=== PATIENT | female | born 1955 | race Two or more races ===

== ENCOUNTER 2018-03-21 10:40 | Emergency (ER) | payer MEDICAID, OTHER ==
[~2018-03-21] VITALS: Ht 149.9 cm; Wt 50.3 kg
[2018-03-21 10:54] VITALS: BP 219/96
[2018-03-21] MEDS ORDERED: cloNIDine HCL 0.1 MG TAB PO ONE (11:00)
== END 2018-03-21 11:37 | disposition home or self-care (01) ==
LOC: ER 10:46
DX: I16.0 Hypertensive urgency (principal); J06.9 Acute upper respiratory infection, unspecified; E11.9 Type 2 diabetes mellitus without complications; I10 Essential (primary) hypertension

== ENCOUNTER 2018-05-17 09:09 | Emergency (ER) | payer MEDICAID ==
[~2018-05-17] VITALS: Ht 149.9 cm; Wt 47.6 kg
[2018-05-17 09:16] VITALS: BP 167/85
[2018-05-17] MEDS ORDERED: FLUORESCEIN SOD 1 MG TEST STRIP OP ONE (10:00)
[2018-05-17] MEDS ORDERED: TETRACAINE HCL 0.5% OPTH(EYE) SOLN 4ML EACHEYE ONE (10:00)
== END 2018-05-17 10:30 | disposition home or self-care (01) ==
LOC: ER 09:10
DX: S05.02XA Injury of conjunctiva and corneal abrasion without foreign body, left eye, initial encounter (principal); X58.XXXA Exposure to other specified factors, initial encounter; Y93.01 Activity, walking, marching and hiking; Y99.8 Other external cause status; Y92.89 Other specified places as the place of occurrence of the external cause

== ENCOUNTER 2018-05-20 08:28 | Emergency (ER) | payer MEDICAID ==
[~2018-05-20] VITALS: Ht 149.9 cm; Wt 47.6 kg
[2018-05-20 09:04] VITALS: BP 152/80
== END 2018-05-20 09:49 | disposition home or self-care (01) ==
LOC: ER 08:28
DX: H57.12 Ocular pain, left eye (principal); Z76.0 Encounter for issue of repeat prescription; E11.9 Type 2 diabetes mellitus without complications; I10 Essential (primary) hypertension

== ENCOUNTER 2018-06-15 14:58 | Emergency (ER) | payer MEDICAID ==
[~2018-06-15] VITALS: Ht 149.9 cm; Wt 47.6 kg
[2018-06-15 15:12] VITALS: BP 135/91
== END 2018-06-15 16:42 | disposition home or self-care (01) ==
LOC: ER 15:07
DX: B35.1 Tinea unguium (principal); E11.9 Type 2 diabetes mellitus without complications; I10 Essential (primary) hypertension

== ENCOUNTER 2019-02-03 12:46 | Emergency (ER) | payer MEDICAID ==
[~2019-02-03] VITALS: Ht 149.9 cm; Wt 49.9 kg
[2019-02-03 14:56] VITALS: BP 148/82
== END 2019-02-03 16:20 | disposition home or self-care (01) ==
LOC: ER 13:03
DX: M54.42 Lumbago with sciatica, left side (principal)

== ENCOUNTER 2019-05-25 15:43 | Emergency (ER) | payer MEDICAID ==
[~2019-05-25] VITALS: Ht 149.9 cm; Wt 43.1 kg
[2019-05-25 16:28] VITALS: BP 142/79
== END 2019-05-25 17:42 | disposition home or self-care (01) ==
LOC: ER 15:44
DX: J06.9 Acute upper respiratory infection, unspecified (principal); E11.9 Type 2 diabetes mellitus without complications; I10 Essential (primary) hypertension
CPT/HCPCS: 71046

== ENCOUNTER 2024-06-18 10:29 | Emergency (ER) | payer MEDICARE, MEDICAID ==
[~2024-06-18] VITALS: Ht 149.9 cm; Wt 47.3 kg
[2024-06-18 11:21] LABS: Basophils # (auto) 0.1 10 ^3/uL (0-0.2); Basophils % (auto) 0.7 % (0.0-2.0); Eosinophils # (auto) 0.4 10 ^3/uL (0-0.8); Eosinophils % (auto) 3.6 % (0.0-7.0); Hematocrit 46.4 % (36.0-46.0); Hemoglobin 15.8 g/dL (12.2-16.2); Lymphocytes # (auto) 2.7 10 ^3/uL (0.4-5.4); Lymphocytes % (auto) 25.5 % (10.0-50.0); Mean Corpuscular Hemoglobin 29.5 pg (28.0-32.0); Mean Corpuscular Hgb Conc. 34.1 g/dL (32.0-36.0); Mean Corpuscular Volume 86.5 fL (80.0-100.0); Monocytes # (auto) 0.6 10 ^3/uL (0-1.3); Monocytes % (auto) 5.9 % (0.0-12.0); Neutrophils # (auto) 6.7 10 ^3/uL (1.6-8.6); Neutrophils % (auto) 64.3 % (37.0-80.0); Nucleated Red Blood Cells % 0.2 %; Platelet Count (auto) 307 10^3/uL (140-450); Red Blood Cells 5.36 10^6/uL (4.0-5.20); Red Cell Distribution Width 13.6 % (11.8-14.3); White Blood Cell 10.5 10^3/uL (4.4-10.8)
--- NOTE | 2024-06-18 11:23 | ED.PDOC ---
HPI (NEURO) HPI Comments 68 year old female presents to the ED with chief complaint of eye concern and left sided facial droop. Patient reports that she noticed her left sided facial droop with associated double vision and mild left upper extremity weakness since 3 days ago. Patient relays that she is unable to close her left eyelid at all. Patient denies any dizziness, numbness, chest pain, SOB, or N/V. Chief Complaint: Eye Problem Time Seen by MD: 11:22 Primary Care Provider: JOSH Reviewed Notes: Nurses Notes, Medications, Allergies Information Source: Patient Mode of Arrival: Ambulatory Severity: Moderate Dizziness/Weakness Severity: Does not affect activitie Timing: Hours Duration: Since onset Prehospital treatment: None Weakness Location: Facial Onset: At rest Circumstances: Spontaneous Symptoms: Change of vision, Diplopia History of: None Modifying factors: Nothing Past Medical History PAST MEDICAL HISTORY: DM, High Lipids, HTN Surgical History: Denies all surgeries OUTBOUND SUPERVISOR History: No Pertinent OUTBOUND SUPERVISOR History Family History Family History: Unknown Social History Smoker: Non-Smoker Alcohol: Denies ETOH Use Drugs: Denies Drug Use Lives In: Home Constitutional: denies: chills, diaphoresis, fatigue, fever, malaise, sweats, weakness, others EENTM: reports: double vision; denies: blurred vision, ear bleeding, ear discharge, ear drainage, ear pain, ear ringing, eye pain, eye redness, hearing loss, mouth pain, mouth swelling, nasal discharge, nose bleeding, nose congesti on, nose pain, photophobia, tearing, throat pain, throat swelling, voice changes, others Respiratory: denies: cough, hemoptysis, orthopnea, SOB at rest, shortness of breath, SOB with excertion, stridor, wheezing, others Cardiovascular: denies: chest pain, dizzy spells, diaphoresis, Dyspnea on exertion, edema, irregular heart beat, left arm pain, lightheadedness, palpitations, PND, syncope, others Gastrointestinal: denies: abdomen distended, abdominal pain, blood streaked bowels, constipated, diarrhea, dysphagia, difficulty swallowing, hematemesis, melena, nausea, poor appetite, poor fluid intake, rectal bleeding, rectal pain, vomiting, others Genitourinary: denies: abnormal vagina bleeding, burning, dyspareunia, dysuria, flank pain, frequency, hematuria, incontinence, pain, , vagina discha rge, urgency, others Neurological: reports: others (Lt facial droop); denies: dizziness, fainting, headache, left sided numbness, left sided weakness, numbness, paresthesia, pre- existing deficit, right sided numbness, right sided weakness, seizure, speech problems, tingling, tremors, weakness Musculoskeletal: denies: back pain, gout, joint pain, joint swelling, muscle pain, muscle stiffness, neck pain, others Integumetry: denies: bruises, change in color, change in hair/nails, dryness, laceration, lesions, lumps, rash, wounds, others Allergic/Immunocompromised: denies: Difficulty Healing, Frequent Infections, Hives, Itching, others Hematologic/Lymphatic: denies: anemia, blood clots, easy bleeding, easy bruising, swollen glands, others Endocrine: denies: excessive hunger, excessive sweating, excessive thirst, excessive urination, flushing, intolerance to cold, intolerance to heat, unexplained weight gain, unexplained weight loss, others Psychiatric: denies: anxiety, bipolar disorder, depression, hopeless, panic disorder, schizophrenia, sleepless, suicidal, others All Other Systems: Reviewed and Negative Physical Exam General Appearance: No Apparent Distress, Normal HEENT: Normal ENT Inspection, PERRL/EOMI Neck: Full Range of Motion, Non-Tender, Normal, Normal Inspection Respiratory: Chest Non-Tender, Lungs Clear, No Accessory Muscle Use, No Respi ratory Distress, Normal Breath Sounds Cardiovascular: No Edema, No JVD, No Murmur, No Gallop, Normal Peripheral Pulses, Regular Rate/Rhythm Breast Exam: Deferred Gastrointestinal: No Organomegaly, Non Tender, No Pulsatile Mass, Normal Bowel Sounds, Soft Genitalia: Deferred Pelvic: Deferred Rectal: Deferred Extremities: No calf tenderness, Normal capillary refill, Normal inspection, Normal range of motion, Non-tender, No pedal edema Musculoskeletal : Apperance: Normal Neurologic: Alert, learning administrator II-XII nml as Tested, No Motor Deficits, Normal Affect, Normal Mood, No Sensory Deficits Cerebellar Function: Normal Reflexes: Normal Skin: Dry, Normal Color, Warm Lymphatic: No Adenopathy Was a procedure done? Was a procedure done?: No X-Ray, Labs, Meds, VS Vital Signs Date Time Temp Pulse Resp B/P (MAP) Pulse Ox O2 Delivery O2 Flow Rate FiO2 06/18/24 11:32 98.1 88 16 174/82 (112) 97 98.1 06/18/24 11:32 88 16 97 Room Air* 0 21 06/18/24 10:37 97.7 91 16 176/88 (117) 96 97.7 Lab Test 06/18/24 11:00 06/18/24 10:55 06/18/24 10:39 Range/Units White Blood Count 10.5 4.4-10.8 10^3/uL Red Blood Count 5.36 H 4.0-5.20 10^6/uL Hemoglobin 15.8 12.2-16.2 g/dL Hematocrit 46.4 H 36.0-46.0 % Mean Corpuscular Volume 86.5 80.0-100.0 fL Mean Corpuscular Hemoglobin 29.5 28.0-32.0 pg Mean Corpuscular Hemoglobin Concent 34.1 32.0-36.0 g/dL Red Cell Distribution Width 13.6 11.8-14.3 % Platelet Count 307 140-450 10^3/uL Mean Platelet Volume 7.6 6.9-10.8 fL Neutrophils (%) (Auto) 64.3 37.0-80.0 % Lymphocytes (%) (Auto) 25.5 10.0-50.0 % Monocytes (%) (Auto) 5.9 0.0-12.0 % Eosinophils (%) (Auto) 3.6 0.0-7.0 % Basophils (%) (Auto) 0.7 0.0-2.0 % Neutrophils # (Auto) 6.7 1.6-8.6 10 ^3/uL Lymphocytes # (Auto) 2.7 0.4-5.4 10 ^3/uL Monocytes # (Auto) 0.6 0-1.3 10 ^3/uL Eosinophils # (Auto) 0.4 0-0.8 10 ^3/uL Basophils # (Auto) 0.1 0-0.2 10 ^3/uL Nucleated Red Blood Cells 0.2 % Sodium Level 139 136-145 mmol/L Potassium Level 3.9 3.5-5.1 mmol/L Chloride Level 102 98-107 mmol/L Carbon Dioxide Level 28 20-31 mmol/L Anion Gap 9 5-15 Blood Urea Nitrogen 10 9-23 mg/dL Creatinine 0.81 0.550-1.02 mg/dL Glomerular Filtration Rate Calc 79 >90 mL/min BUN/Creatinine Ratio 12.3 10.0-20.0 Serum Glucose 149 H 74-106 mg/dL Calcium Level 10.6 H 8.7-10.4 mg/dL Total Bilirubin 0.5 0.2-1.0 mg/dL Aspartate Amino Transferase (AST) 18 13-40 U/L Alanine Aminotransferase (ALT) 28 7-40 U/L Alkaline Phosphatase 74 46-116 U/L Total Protein 7.9 5.7-8.2 g/dL Albumin 5.1 H 3.2-4.8 g/dL Urine Color Light-yellow Yellow Urine Clarity Clear Clear Urine pH 6.5 5.0-9.0 Urine Specific [place] 1.022 1.001-1.035 Urine Protein Negative Negative Urine Ketones 1+ H Negative Urine Blood Negative Negative /uL Urine Nitrite Negative Negative Urine Bilirubin Negative Negative Urine Urobilinogen Normal Negative mg/dL Urine Leukocyte Esterase 2+ Negative /uL Urine RBC 1 0 - 4 /hpf Urine Microscopic WBC 5 0-5 /HPF Urine Squamous Epithelial Cells Few <5 /hpf Urine Bacteria None seen None Seen /hpf Urine Glucose Normal Normal mg/dL POC Glucose 144 H 70-106 mg/dl CT Angio head/neck: CTA head: There are calcified atherosclerotic changes in the bilateral cavernous internal carotid arteries without significant stenosis. The anterior and middle cerebral arteries demonstrate normal caliber without hemodynamically significant stenosis or occlusion. There are calcified atherosclerotic plaques in the intracranial vertebral arteries, left greater than right without significant stenosis. The basilar, and posterior cerebral arteries demonstrate no hemodynamically significant stenosis or occlusion. There is no evidence of intracranial arterial aneurysm or arteriovenous malformation. The early parenchymal enhancement is grossly unremarkable. CTA neck: The visualized thoracic aortic arch and proximal great vessels are unremarkable. There are calcified atherosclerotic plaques in the bilateral carotid bulbs, [id number]-mnil-right with less than 50% stenosis. The bilateral common, internal and external carotid arteries otherwise are patent without hemodynamically significant stenosis. The right and left vertebral arteries are patent without flow-limiting stenosis or obvious dissection.. The neck soft tissues appear within normal limits. Lung apices are clear. IMPRESSION: 1. No hemodynamically significant stenosis, proximal occlusion or aneurysm in the intracranial arteries. 2. No hemodynamically significant stenosis in the cervical segments of the carotid and vertebral arteries. CT Head: FINDINGS: There is no evidence of acute intracranial hemorrhage, mass, mass effect midline shift. There is no hydrocephalus or extra-axial fluid collection. There are mild patchy hypodense changes in the supratentorial white matter likely related to chronic microvascular ischemic changes. Arora-white matter differentiation is maintained. The visualized paranasal sinuses and mastoid air cells are clear. The calvarium is intact. IMPRESSION: 1. No acute intracranial process. X-Ray, Labs, Meds, VS Comment COURSE IN THE EMERGENCY DEPARTMENT EVENTFUL PATIENT CAME IN BECAUSE SHE DOUBLE WITH VISION AND FEELS CONFUSED AND SCARED SHE HAS A MINIMAL LEFT FACIAL DROOP LEFT ARM WEAKNESS HEADACHE AND UNSTEADY GAIT BLOOD PRESSURE 176/88 EKG SHOWS NORMAL SINUS RHYTHM AT 88 WITH LEFT AXIS DEVIATION BUNDLE-BRANCH BLOCK CT ANGIO OF THE HEAD AND NECK ARE NEGATIVE URINE NEGATIVE CBC NORMAL CMP BLOOD SUGAR 144 AND REST IS NEGATIVE PATIENT WILL BE ADMITTED FOR FURTHER CARE PATIENT DID NOT WANT TO BE ADMITTED AND LEFT AMA Images Reviewed?: Images reviewed and evaluated by me Time of 1ST Reevaluation: 12:21 Reevaluation 1ST: Unchanged Time of 2ND Reevaluation: 13:42 Reevaluation 2ND: Improved Consultation: PCP, Other (OPHTHALMOLOGY) Patient Education/Counseling: Diagnosis, Treatment, Prognosis, Need For Follow Up Family Education/Counseling: Diagnosis, Treatment, Prognosis, Need For Follow Up, No Family Present Departure 1 Departure Time of Disposition: 13:44 Impression: Primary Impression: Diplopia Additional Impressions: TIA (transient ischemic attack) Hypertension Qualified Codes: 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 Electronically submitted by Jamal Kramer ([email or web address]). I personally scribed for TONI WILKINS MD ([email or web address]) on 06/18/24 at 12:42. Electronically submitted by Jamal Kramer ([email or web address]). TONI WILKINS MD Jun 18, 2024 11:23
[2024-06-18] MEDS: IOHEXOL 350 MG/ML 100ML IJ ONE (11:28)
[2024-06-18 11:32] VITALS: BP 174/82; PULSE 88; RESP 16; TEMP 98.1; O2SAT 97
[2024-06-18 11:41] LABS: Alanine Aminotransferase 28 U/L (7-40); Alkaline Phosphatase 74 U/L (46-116); Anion Gap 9 (5-15); Aspartate Aminotransferase 18 U/L (13-40); BUN/Creatinine Ratio 12.3 (10.0-20.0); Blood Urea Nitrogen 10 mg/dL (9-23); Carbon Dioxide 28 mmol/L (20-31); Chloride 102 mmol/L (98-107); Potassium 3.9 mmol/L (3.5-5.1); Sodium 139 mmol/L (136-145); Total Protein 7.9 g/dL (5.7-8.2)
[2024-06-18 11:42] LABS: Bilirubin, Total 0.5 mg/dL (0.2-1.0)
[2024-06-18 11:44] LABS: Albumin 5.1 g/dL (3.2-4.8); Calcium 10.6 mg/dL (8.7-10.4); Glucose 149 mg/dL (74-106)
[2024-06-18 11:48] LABS: Urine Bacteria None Seen /hpf (None Seen)
[2024-06-18 12:01] LABS: Urine Blood Negative /uL (Negative); Urine Clarity Clear (Clear); Urine Color Light-Yellow (Yellow); Urine Protein, UAD Negative (Negative); Urine Specific Gravity 1.022 (1.001-1.035); Urine Squamous Epithelial Cell FEW /hpf (<5); Urine Urobilinogen Normal (Negative); Urine WBC 5 /HPF (0-5); Urine pH 6.5 (5.0-9.0)
--- NOTE | 2024-06-18 12:02 | DVH ---
EXAM: CT HEAD WITHOUT CONTRAST HISTORY: LEFT FACIAL WEAKNESS DOUBLE VISION COMPARISON: None TECHNIQUE: Axial images of the head were obtained and reformatted in coronal and sagittal planes. All CT scans at this medical facility are performed using dose modulation techniques as appropriate t o a performed exam including the following: Automated exposure control was utilized; adjustment of th e MA and/or KV according to patient size; and use of iterative reconstruction technique. CT Dose: CTDI volume is 51.07 mGy. Dose-length product is 904.3 mGy*cm FINDINGS: There is no evidence of acute intracranial hemorrhage, mass, mass effect midline shift. There is no h ydrocephalus or extra-axial fluid collection. There are mild patchy hypodense changes in the suprate ntorial white matter likely related to chronic microvascular ischemic changes. Arora-white matter dif ferentiation is maintained. The visualized paranasal sinuses and mastoid air cells are clear. The calvarium is intact. IMPRESSION: 1. No acute intracranial process. HS:Y
--- NOTE | 2024-06-18 12:28 | DVH ---
Procedure: CT ANGIO HEAD/Neck HISTORY: CVA Comparison Study: CT head 06/18/2024 Exam Date:06/18/2024 11:17 AM TECHNIQUE: CTA head without and with intravenous contrast. CTA neck with intravenous contrast. 3D j carlos Introhive postprocessing was performed and images were used for interpretation and reporting. 100 cc of Omni paque 300 contrast was injected intravenously. All CT scans at this medical facility are performed using dose modulation techniques as appropriate t o a performed exam including the following: Automated exposure control was utilized; adjustment of th e MA and/or KV according to patient size; and use of iterative reconstruction technique. Radiation Dose : CT Dose: CTDI volume is 22 mGy. Dose-length product is 725 mGy*cm FINDINGS: CTA head: There are calcified atherosclerotic changes in the bilateral cavernous internal carotid arteries with out significant stenosis. The anterior and middle cerebral arteries demonstrate normal caliber withou t hemodynamically significant stenosis or occlusion. There are calcified atherosclerotic plaques in the intracranial vertebral arteries, left greater vy n right without significant stenosis. The basilar, and posterior cerebral arteries demonstrate no h emodynamically significant stenosis or occlusion. There is no evidence of intracranial arterial aneurysm or arteriovenous malformation. The early parenchymal enhancement is grossly unremarkable. CTA neck: The visualized thoracic aortic arch and proximal great vessels are unremarkable. There are calcified atherosclerotic plaques in the bilateral carotid bulbs, dtlz-ptabegp-lydg-right w ith less than 50% stenosis. The bilateral common, internal and external carotid arteries otherwise ar e patent without hemodynamically significant stenosis. The right and left vertebral arteries are patent without flow-limiting stenosis or obvious dissectio n.. The neck soft tissues appear within normal limits. Lung apices are clear. IMPRESSION: 1. No hemodynamically significant stenosis, proximal occlusion or aneurysm in the intracranial arteri es. 2. No hemodynamically significant stenosis in the cervical segments of the carotid and vertebral steve kacy. HS:Y
--- NOTE | 2024-06-18 14:59 | DVHINCON2 ---
Date Seen: Jun 18, [address] Esteban. Reason for Consultation TIA versus CVA History of Present Illness 68 year old female presents to the ED with chief complaint of eye concern and left sided facial droop. Patient reports that she noticed her left sided facial droop with associated double vision and mild left upper extremity weakness since 3 days ago. Patient relays that she PAST MEDICAL HISTORY: DM, High Lipids, HTN Surgical History: Denies all surgeries ADMINISTRATION PHYSICIAN History: No Pertinent ADMINISTRATION PHYSICIAN History Family History: Unknown Smoker: Non-Smoker Alcohol: Denies ETOH Use Drugs: Denies Drug Use Lives In: Home Allergies: Coded Allergies: NO KNOWN ALLERGIES (Unverified , 03/21/18) Vital Signs Vital Signs Date Time Temp Pulse Resp B/P (MAP) Pulse Ox O2 Delivery O2 Flow Rate FiO2 06/18/24 11:32 98.1 88 16 174/82 (112) 97 98.1 06/18/24 11:32 Room Air* 0 21 Physical Exam Generally-68 years old woman, well nourished well developed. No apparent distress HEENT-atraumatic normocephalic Heart-regular rate and rhythm Lungs clear to auscultate Abdomen soft nontender nondistended Musculoskeletal-no edema cyanosis Neuro-AO x3, slight facial droop left side, versus and diplopia. Strength and sensory intact Labs/Diagnostic Data Labs Test 06/18/24 11:00 06/18/24 10:55 06/18/24 10:39 Range/Units White Blood Count 10.5 4.4-10.8 10^3/uL Red Blood Count 5.36 H 4.0-5.20 10^6/uL Hemoglobin 15.8 12.2-16.2 g/dL Hematocrit 46.4 H 36.0-46.0 % Mean Corpuscular Volume 86.5 80.0-100.0 fL Mean Corpuscular Hemoglobin 29.5 28.0-32.0 pg Mean Corpuscular Hemoglobin Concent 34.1 32.0-36.0 g/dL Red Cell Distribution Width 13.6 11.8-14.3 % Platelet Count 307 140-450 10^3/uL Mean Platelet Volume 7.6 6.9-10.8 fL Neutrophils (%) (Auto) 64.3 37.0-80.0 % Lymphocytes (%) (Auto) 25.5 10.0-50.0 % Monocytes (%) (Auto) 5.9 0.0-12.0 % Eosinophils (%) (Auto) 3.6 0.0-7.0 % Basophils (%) (Auto) 0.7 0.0-2.0 % Neutrophils # (Auto) 6.7 1.6-8.6 10 ^3/uL Lymphocytes # (Auto) 2.7 0.4-5.4 10 ^3/uL Monocytes # (Auto) 0.6 0-1.3 10 ^3/uL Eosinophils # (Auto) 0.4 0-0.8 10 ^3/uL Basophils # (Auto) 0.1 0-0.2 10 ^3/uL Nucleated Red Blood Cells 0.2 % Sodium Level 139 136-145 mmol/L Potassium Level 3.9 3.5-5.1 mmol/L Chloride Level 102 98-107 mmol/L Carbon Dioxide Level 28 20-31 mmol/L Anion Gap 9 5-15 Blood Urea Nitrogen 10 9-23 mg/dL Creatinine 0.81 0.550-1.02 mg/dL Glomerular Filtration Rate Calc 79 >90 mL/min BUN/Creatinine Ratio 12.3 10.0-20.0 Serum Glucose 149 H 74-106 mg/dL Calcium Level 10.6 H 8.7-10.4 mg/dL Total Bilirubin 0.5 0.2-1.0 mg/dL Aspartate Amino Transferase (AST) 18 13-40 U/L Alanine Aminotransferase (ALT) 28 7-40 U/L Alkaline Phosphatase 74 46-116 U/L Total Protein 7.9 5.7-8.2 g/dL Albumin 5.1 H 3.2-4.8 g/dL Urine Color Light-yellow Yellow Urine Clarity Clear Clear Urine pH 6.5 5.0-9.0 Urine Specific [place] 1.022 1.001-1.035 Urine Protein Negative Negative Urine Ketones 1+ H Negative Urine Blood Negative Negative /uL Urine Nitrite Negative Negative Urine Bilirubin Negative Negative Urine Urobilinogen Normal Negative mg/dL Urine Leukocyte Esterase 2+ Negative /uL Urine RBC 1 0 - 4 /hpf Urine Microscopic WBC 5 0-5 /HPF Urine Squamous Epithelial Cells Few <5 /hpf Urine Bacteria None seen None Seen /hpf Urine Glucose Normal Normal mg/dL POC Glucose 144 H 70-106 mg/dl Assessment Facial droop, diplopia suspect stroke Plan/Recommendation CT head negative Recommended to check brain MRI Neuro consult Neuro check per floor protocol IV fluids patient says she insisted on leaving AMA. Patient is overweight aware of risks and benefits sudden hospital and risk patient had a bowel sign with possible recurrent stroke. Patient states she does not stroke and is leading. Recommend the patient to come back to emergency indicates worse or see PCP as soon as possible Full code Lovenox for DVT prophylaxis PPI for GI prophylaxis Plan discussed with: Patient Date of Service: Jun 18, 2024 Billing Provider: ABBY HEADLEY MD Common Visit Codes: CONSULT ONLY Consultation Codes: [id number] CONSULT <45MIN ABBY HEADLEY MD Jun 18, 2024 14:59
--- NOTE | 2024-06-20 10:17 | ECG ---
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
--- NOTE | 2024-06-20 10:17 | ECG ---
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
== END 2024-06-18 15:02 | disposition left against medical advice (07) ==
LOC: ER 10:29
DX: G45.9 Transient cerebral ischemic attack, unspecified (principal); R29.810 Facial weakness; I10 Essential (primary) hypertension; E11.9 Type 2 diabetes mellitus without complications; E78.5 Hyperlipidemia, unspecified
CPT/HCPCS: 36415; 70450; 70496; 70498; 80053; 81001; 82947; 85025; 99285; Q9967; 82962